=== PATIENT | male | born 1990 | race African-American/Black ===

== ENCOUNTER 2020-01-19 05:45 | Emergency (ER) | payer OTHER, SELFPAY ==
[2020-01-19 05:44] VITALS: BP 139/104; PULSE 131; RESP 22; TEMP 37.2; O2SAT 96
--- NOTE | 2020-01-19 05:54 | ECG_ITS ---
Measurements Intervals [place] Rate: 120 P: 64 [place]: 112 QRS: 71 QRSD: 110 T: 4 QT: 334 QTc: 473 Interpretive Statements SINUS TACHYCARDIA WITH SHORT [place] INTERVAL INTRAVENTRICULAR CONDUCTION DELAY LEFT VENTRICULAR HYPERTROPHY AND ST-T CHANGE MINIMAL Q WAVES- ANTEROLAT/INF LEADS ABNORMAL ECG Electronically Signed On 01-19-2020 7:28:09 CDT by Benton Sandoval D.O.
[2020-01-19 06:02] VITALS: RESP 25
--- NOTE | 2020-01-19 06:10 | PC.NURSE ---
Contacted Sary at poison control. Per Sary, she recommends benzodiazepines for patient's agitation and possibly drawing a creatine kinase to rule out rhabdomyolysis.
[2020-01-19 06:14] VITALS: PULSE 140
[2020-01-19 06:19] LABS: Basophils Percent Auto 0.3 % (0.2-1.2); Eosinophils Absolute Auto 0.2 K/mm3 (0-0.3); Eosinophils Percent Auto 1.2 % (0-4.4); Hematocrit 41.5 % (42.0-52.0); Hemoglobin 13.7 g/dL (14.0-18.0); Immature Granulocyte Absolute 0.06 K/mm3 (0.00-0.031); Immature Granulocyte Percent A 0.4 % (0-0.5); Lymphocytes Absolute Auto 3.74 K/mm3 (0.9-3.2); Lymphocytes Percent Auto 27.3 % (18.3-44.2); Mean Corpuscular Hemoglobin 28.6 pg (26-34); Mean Corpuscular Volume 86.6 fl (80-100); Mean Platelet Volume 11.8 fl (7.4-10.4); Monocytes Absolute Auto 1.2 K/mm3 (0.1-0.6); Neutrophils Absolute Auto 8.4 K/mm3 (1.3-6.7); Neutrophils Percent Auto 61.8 % (45.5-73.1); Platelet Count Result 232 k/mm3 (150-375); Red Blood Count 4.79 M/mm3 (4.6-6.20); Red Cell Distribution Width 14.4 % (11.5-14.5); White Blood Count 13.7 K/mm3 (4.5-10.0)
[2020-01-19 06:21] LABS: Acetaminophen < 10 ug/mL (10-30); Ethanol < 10 mg/dL (<10); Salicylate < 1.0 mg/dL (2-20)
[2020-01-19 06:22] LABS: Albumin Level 4.7 g/dL (3.5-5.1); Alkaline Phosphatase 78 U/L (38-126); Aspartate Amino Transferase 28 U/L (17-59); Bilirubin,Total 0.6 mg/dL (0.2-1.3); Blood Urea Nitrogen 11 mg/dL (9-20); Calcium 9.1 mg/dL (8.4-10.2); Carbon Dioxide 21 mmol/L (22-30); Chloride 104 mmol/L (98-107); Estimated CRCL calculation 70 ml/min; Estimated Glomerular Filt Rate > 60; Glucose 254 mg/dL (75-110); Potassium 3.1 mmol/L (3.4-5.0); Sodium 140 mmol/L (137-145)
[2020-01-19 06:31] LABS: Alanine Aminotransferase 19 U/L (4-50)
--- NOTE | 2020-01-19 06:43 | PC.NURSE ---
Patient refusing to provide a urine sample and refusing a straight cath.
[2020-01-19] MEDS: SODIUM CHLORIDE 0.9% IV 1,000 ML 999 ML IV CONT ×2 (06:51→07:31)
[2020-01-19] MEDS: LORAZEPAM INJ 2 MG/ML VIAL 1 MG IV PUSH ×3 (06:51→08:51)
[2020-01-19 06:56] LABS: Creatine Kinase 466 U/L (55-170)
--- NOTE | 2020-01-19 07:15 | PC.NURSE ---
This RN went into pts room to introduce myself. Pt is thrashing around in bed and talking to himself. Informed pt that we are still needing a urine sample . Pt states he understands. Pt is in room to where this RN is able to see him from nurses station.
--- NOTE | 2020-01-19 07:23 | ED.GENADULT ---
HPI - General Adult General Chief complaint: Unspecified Stated complaint: TOOK PILLS Time Seen by Provider: 01/19/20 07:02 History of Present Illness HPI narrative: Brought in by EMS after polysubstance ingestion. Police were called to his residence after a verbal dispute with his girlfriend. He admits to taking several different drugs. He denies that he was attempting to harm himself. He says that he was having a difficult week and he has a problem with drugs. He denies any specific complaints at this time. Related Data Home Medications Medication Instructions Recorded Confirmed Unable to Obtain Home Medications 01/19/20 Allergies Allergy/AdvReac Type Severity Reaction Status Date / Time No Known Allergies Allergy Unknown Unverified 06/19/14 12:49 Review of Systems Review of Systems: All systems reviewed & are unremarkable except as noted in HPI and below Constitutional: Constitutional: Denies fever(s) and Denies weakness Cardiovascular: Cardiovascular: Denies chest pain Respiratory: Respiratory: Denies dyspnea Gastrointestinal: Gastrointestinal: Denies nausea Genitourinary: Genitourinary: Denies dysuria Musculoskeletal: Musculoskeletal: Reports back pain Neurologic: Denies dizziness and Denies weakness Psychiatric: Psychiatric: Denies depression, Denies homicidal ideation and Denies suicidal ideation [facility] Past Medical History Medical History (Updated 01/19/20 @ 10:35 by Chris Varela MD) Drug abuse Social History Social History (Updated 01/19/20 @ 07:40 by Chris Varela MD) Substance use: current Substance use type: marijuana, amphetamines, painkillers and prescription drug Exam Const: General: healthy appearing, no acute distress and alert Nutritional Appearance: well nourished Orientation/consciousness: patient oriented x3 HENMT: Head: normal to inspection Eyes: Pupils: Equal, round and reactive pupils present EOM: EOMs intact bilaterally Neck: Neck: normal visual inspection Chest: Chest palpation & inspection: normal inspection of the chest Resp: Effort & Inspection: normal respiratory effort Auscultation: clear to auscultation bilaterally Cardio: Rate: tachycardic Rhythm: regular rhythm GI: GI Palp: Yes Soft to palpation and No Tenderness to palpation present (GI) Skin: General skin exam: normal color Rashes: no rashes Wounds: no wounds Neuro: General: patient oriented x3, moves all extremities and CN's II-XI intact bilaterally Extrem: General: normal to inspection Psych: Affect: Anxious affect present Other: moderately agitated and restless Course Vital Signs Vital signs: Vital Signs Temperature 37.2 C 01/19/20 05:44 Pulse Rate 131 H 01/19/20 05:44 Respiratory Rate 22 H 01/19/20 05:44 Blood Pressure 139/104 H 01/19/20 05:44 Pulse Oximetry 96 01/19/20 05:44 Temperature 37.2 C 01/19/20 05:44 Pulse Rate 118 H 01/19/20 10:28 Respiratory Rate 20 01/19/20 10:28 Blood Pressure 134/117 H 01/19/20 09:42 Pulse Oximetry 100 01/19/20 10:28 Medical Decision Making MDM Narrative Medical decision making narrative: He is clearly intoxicated, but he does display desicional capacity. He is not an immediate danger to himself or others. He has chosen to signout AMA and understands the risks. Medical Records Medical records reviewed: Yes I reviewed the patient's medical records. Vital Signs Vital Signs: Vital Signs Temperature 37.2 C 01/19/20 05:44 Pulse Rate 131 H 01/19/20 05:44 Respiratory Rate 22 H 01/19/20 05:44 Blood Pressure 139/104 H 01/19/20 05:44 Pulse Oximetry 96 01/19/20 05:44 Temperature 37.2 C 01/19/20 05:44 Pulse Rate 118 H 01/19/20 10:28 Respiratory Rate 20 01/19/20 10:28 Blood Pressure 134/117 H 01/19/20 09:42 Pulse Oximetry 100 01/19/20 10:28 Lab Data Result diagrams: 01/19/20 06:01 01/19/20 06:01 Labs: Lab Results 01/19/20 06
[2020-01-19 07:32] VITALS: BP 132/97; PULSE 133; RESP 13; O2SAT 100
--- NOTE | 2020-01-19 07:44 | PC.NURSE ---
Pt Mother Dior called and wanted to know what was going on with her son. I went into pts room and asked if I could speak to his mom about why he was here. Pt gave verbal ok for me to talk to his mom. Pts mom states that son has a problem and probably got ahold of some bad shit . Pt mom states that son needs help.
[2020-01-19 08:36] LABS: Add Urine Microscopic? YES; Appearance Urine Clear (Clear); Bacteria Urine 1+ /hpf; Bilirubin Urine 1+ (Negative); Blood Urine Negative (Negative); Color Urine Amber (Yellow); Glucose Urine UA Negative (Negative); Hyaline Casts Urine 15-19 /lpf; Ketones Urine Negative (Negative); Leukocyte Esterase Ur Trace LEU/UL (Negative); Mucus Urine Heavy /lpf; Nitrate Urine Negative (Negative); Protein Urine 2+ mg/dL (Negative)
[2020-01-19 08:37] LABS: Barbiturate Screen Urine Negative (Negative); Benzodiazepines Screen Urine Positive (Negative); Specific Grav Ur 1.032 (1.001-1.035)
[2020-01-19 08:49] LABS: Cannabinoid Screen Urine Positive (Negative); Cocaine Screen Urine Negative (Negative); Methadone Screen Urine Negative (Negative); Opiate Screen Urine Positive (Negative); Phencyclidine Screen Urine Negative (Negative)
--- NOTE | 2020-01-19 08:54 | PC.NURSE ---
Pt pulled out IV. Inform Dr. De Luna of this and he was ok giving pt Ativan IM.
[2020-01-19 08:59] LABS: Amphetamine Screen Urine Positive (Negative)
[2020-01-19 09:42] VITALS: BP 134/117; PULSE 134; RESP 34; O2SAT 98
--- NOTE | 2020-01-19 09:43 | PC.NURSE ---
Pt requested to leave AMA. Per charge nurse Celena pt is unstable and not able to leave. states pt can go. Security was called to stand by pts door. Pt is stating we are trying to keep him here for the drugs. This RN explained to pt that his hear rate it extremely high and is this is the reason we need him to stay. Pt states he has a healthy heart and doesn't need to be here. Pt states he has appointments and shit to get done today. Pts heart rate is 134 and pt is still talking in rapid sequence and non identifiable words. This RN offered pt breakfast and pt denied. Pts family refuses to come in get pt, stating he needs help. Pt is currently moving around in bed and talking to himself. Pt is able to be seen from nurses station.
[2020-01-19 10:28] VITALS: PULSE 118; RESP 20; O2SAT 100
--- NOTE | 2020-01-19 10:40 | PC.NURSE ---
Went over discharge instructions with pt. Informed pt that family is not wanting to come and get him. Informed pt that care coordinater was coming to give him a cab voucher. Also gave pt information on Drug rehab facilities.
== END 2020-01-19 10:42 | disposition left against medical advice (07) ==
PROVIDERS: General Practice; Emergency Provider Emergency Medicine
DX: F15.10 Other stimulant abuse, uncomplicated (principal); F12.10 Cannabis abuse, uncomplicated; F11.10 Opioid abuse, uncomplicated; F13.10 Sedative, hypnotic or anxiolytic abuse, uncomplicated; R00.0 Tachycardia, unspecified; I45.9 Conduction disorder, unspecified; I51.7 Cardiomegaly; R94.31 Abnormal electrocardiogram [ECG] [EKG]
CPT/HCPCS: 36415; 80053; 80307; 81001; 82550; 84443; 85025; 87086; 93005; 96361; 96374; 96376; 99284; J2060; J7030

== ENCOUNTER 2021-04-27 12:00 | Emergency (ER) | payer OTHER, SELFPAY ==
[2021-04-27 12:10] VITALS: BP 120/68; PULSE 79; RESP 16; TEMP 36.6; O2SAT 100
--- NOTE | 2021-04-27 12:25 | PC.NURSE ---
1220- ACID MIXER needle excised the wound on the right lower abd and culture taken on the drainage. then proceeded to excise the larger abscess to the left med-lateral with needle, but changed to #11 blade, with success in draining, and seperate culture taken of that abscess, pt tolerated well, tech dressed both wounds with gauze.
[2021-04-27] MEDS: TETANUS,DIPHTHERIA,AC PERTUSSIS ADULT (0.5 ML) BOOSTRIX IM (12:30)
--- NOTE | 2021-04-27 12:34 | ED.SKABFB ---
HPI - Skin/Abscess/Foreign Bdy General Chief complaint: Skin/Abscess/Foreign Body Stated complaint: BOILS ON STOMACH Source: patient Mode of arrival: ambulatory Limitations: no limitations History of Present Illness HPI narrative: Patient is a 30-year-old male who presents with abscesses to chest and abdomen. Patient reports having been tattooed approximately 2 weeks ago and small lesions starting. He reports increased pain tenderness and swelling to the left upper abdomen and right lower abdomen over the past 1 to 2 days. He denies taking [id number] medications. Patient reports that his tetanus shot is not up-to-date. He denies all other complaints at this time. MD complaint: abscess/boil Related Data Allergies Allergy/AdvReac Type Severity Reaction Status Date / Time No Known Allergies Allergy Unknown Unverified 04/27/21 12:05 Review of Systems Review of Systems: CONSTITUTIONAL: Denies fever, chills, or sweats. EYES: Denies visual changes, redness, or discharge. ENT: Denies rhinorrhea, congestion, sore throat, or otalgia. CARDIOVASCULAR: Denies chest pain, palpitations, or edema. RESPIRATORY: Denies cough or dyspnea. GASTROINTESTINAL: Denies abdominal pain, nausea, vomiting, or diarrhea. GENITOURINARY: Denies dysuria or hematuria. SKIN: Reports multiple boils to abdomen MUSCULOSKELETAL: Denies back pain, joint pain, or myalgia. NEUROLOGIC: Denies headache, numbness, dizziness, or weakness. PSYCHIATRIC: Denies anxiety or depression. PMFSH Past Medical History Medical History Drug abuse Social History Social History (Updated 04/27/21 @ 12:36 by FAM Mora) Smoking status: Current every day smoker Tobacco type: cigarettes Alcohol intake: current Substance use: current Substance use type: marijuana, amphetamines, painkillers and prescription drug Comments At the time of signature, I have reviewed and agree with nursing past medical, surgical, social, and family history unless otherwise noted. Please see nursing chart for further information. There is no relevant family history pertinent to the presenting complaint. Exam Narrative: GENERAL: Well-appearing, well-nourished, and in no acute distress. HEAD: Normocephalic, atraumatic. EYES: EOMI. No redness or drainage. Conjunctiva are normal. ENT: Mucous membranes pink and moist. CHEST: No respiratory distress. HEART: Regular rate and rhythm. EXTREMITIES: Normal range of motion. SKIN: Approximate 1.5 cm abscess to right lower abdomen, no drainage noted. Approximate 4.5 cm raised area of erythema and edema, positive induration fluctuation, warmth noted, tender to touch. No visible drainage. Multiple small pustules to abdomen and chest at various stages of drainage. NEURO: No focal deficits. Alert and oriented x3. Gait steady. PSYCH: Normal affect. No signs of depression or anxiety. Course Vital Signs Vital signs: Vital Signs Temperature 36.6 C 04/27/21 12:10 Pulse Rate 79 04/27/21 12:10 Respiratory Rate 16 04/27/21 12:10 Blood Pressure 120/68 04/27/21 12:10 Pulse Oximetry 100 04/27/21 12:10 Temperature 36.6 C 04/27/21 12:10 Pulse Rate 79 04/27/21 12:10 Respiratory Rate 16 04/27/21 12:10 Blood Pressure 120/68 04/27/21 12:10 Pulse Oximetry 100 04/27/21 12:10 Reviewed Procedures Abscess I/D abdomen: Date of Incision: 04/27/21 Side (if applicable): left Local Anesthetic: lidocaine 1% Amount of anesthesia used (mL): 3 Technique: incised with #11 blade Amount of fluid expressed (mL): 3 Irrigation: Yes Packing used?: none I&D Results: Pus Abcess I&D Additional Comments: 4 x 4 and tape dressing other: Side (if applicable): right (Abdomen) Local Anesthetic: lidocaine 1% Amount of anesthesia used (mL): 1.5 Technique: needle aspiration Amount of flu
== END 2021-04-27 12:48 | disposition home or self-care (01) ==
PROVIDERS: Emergency Provider Nurse Practitioner
DX: L73.9 Follicular disorder, unspecified (principal); L03.319 Cellulitis of trunk, unspecified; L02.211 Cutaneous abscess of abdominal wall; Z23 Encounter for immunization; F17.210 Nicotine dependence, cigarettes, uncomplicated
CPT/HCPCS: 10060; 10160; 87070; 87075; 87147; 87186; 87205; 90471; 90715; 99213; G0463